=== PATIENT | male | born 1935 ===

== ENCOUNTER 2022-08-10 06:10 | Day surgery (SDC) | payer OTHER | END 2022-08-10 11:20 | disposition home or self-care (01) | LOC: AMB-ENDOS 06:10 | PROVIDERS: ATTEND Colon & Rectal Surgery | DX: D12.3 Benign neoplasm of transverse colon (principal); K57.30 Diverticulosis of large intestine without perforation or abscess without bleeding; R19.5 Other fecal abnormalities; K64.8 Other hemorrhoids; Z20.822 Contact with and (suspected) exposure to COVID-19 ==